=== PATIENT | female | born 1995 | race Asian ===

== ENCOUNTER → 2017-05-18 | Outpatient (CLI) | payer BC ==
--- NOTE | ~2017-05-18 | US24 ---
[facility] A Service of [facility] RADIOLOGY TEXT RESULTS PATIENT: AASHISH PUENTE LOCATION: [facility] : [birth year] UNIT #: [id number] AGE: [address]: ZURI ROLDAN APRN SEX: F ORDER DR: [id number] [facility] [address] [place], [place] [address] [id number] O MR#: [id number] Acc #: [id number] NAME: AASHISH PUENTE : 1995 SEX: F STUDY DATE/TIME: 05/18/2017 8:30 UNIT: [facility] ROOM: STUDY DESCRIPTION: US Breast Unilateral Attending Physician: Zuri Roldan Np Referring Physician: Zuri Roldan Np Ordering Physician: Zuri Roldan Np Primary Care Physician: Zuri Roldan Np MEDICAL IMAGING REPORT This report is preliminary unless electronic signature is present EXAM Left breast ultrasound 05/18/2017 INDICATION Palpable nodule in the left breast for 2-3 months. FINDINGS Sonographic evaluation is performed of the left breast in the area of palpable concern. At the 2:30 position, there is a hypoechoic circumscribed ovoid nodule measuring 1.6 x 1.1 x 1.2 cm. 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 However, biopsy is recommended to confirm. This could be done under ultrasound guidance or via surgical excisional biopsy. Findings and recommendations were discussed with the patient at the time of her examination today. This was also discussed with Liza in the breast advocates office for physician notification purposes. IMPRESSION Nodule at the 2:30 position of the left breast as above. While it may represent a fibroadenoma, ultrasound-guided core biopsy or surgical excisional biopsy recommended. BIRADS: 4 Suspicious abnormality - Biopsy should be considered Dictated by... Farzad Krishnamurthy Jr., M.D. THIS IS AN ELECTRONICALLY VERIFIED REPORT Farzad Krishnamurthy Jr., M.D. at 05/18/2017 3:37 PM RLK/connors [facility] A Service of [facility] RADIOLOGY TEXT RESULTS PATIENT: AASHISH PUENTE [id number] [birth year] UNIT #: [id number] AGE: [address]: ZURI ROLDAN APRN SEX: F ORDER DR: TD: 05/18/2017 13:36 JOB #: [id number] MEDICAL IMAGING REPORT Page 1 of 1 COPY
== END | disposition home or self-care (01) ==
LOC: CWCC 05-17 13:00
DX: N63 Unspecified lump in breast (principal)
CPT/HCPCS: 76641

== ENCOUNTER → 2017-05-27 | Day surgery (SDC) | payer BC ==
--- NOTE | ~2017-05-27 | US200 ---
[facility] A Service [facility] RADIOLOGY TEXT RESULTS PATIENT: AASHISH PUENTE LOCATION: [facility] : [birth year] UNIT #: [id number] AGE: [address]: ZURI ROLDAN APRN SEX: F ORDER DR: [id number] [facility] [address] [place] [address] [place], [place] [address] [id number] O MR#: [id number] Acc #: [id number] NAME: AASHISH PUENTE : 1995 SEX: F STUDY DATE/TIME: 05/27/2017 09:59 UNIT: [facility] ROOM: STUDY DESCRIPTION: US Breast Guided Bx 1st Lesion Attending Physician: Zuri Roldan Np Ordering Physician: Zuri Roldan Np Primary Care Physician: Zuri Roldan Np MEDICAL IMAGING REPORT This report is preliminary unless electronic signature is present REVISED REPORT SEE ADDENDUM EXAM Ultrasound guided left breast biopsy on 05/27/2017 INDICATION Left breast mass seen on recent prior imaging. Biopsy was recommended. PROCEDURE Informed consent was obtained and time-out was performed. The left breast nodule at the 02:30 position was localized with ultrasound. Skin was marked and then prepped and draped using maximum sterile-barrier technique. 1% lidocaine without epinephrine used for local anesthesia. Under direct ultrasound visualization, three 14 gauge cores were obtained through the nodule using an Achieve needle. Specimens were placed in formalin. A marking clip was then left within the mass. There were no immediate complications. Permanent ultrasound images were recorded. The postprocedure mammogram shows the marking clip in the expected location. IMPRESSION Successful ultrasound-guided core biopsy of a left breast nodule. Three 14 gauge cores were obtained and a marking clip was left in place. No immediate complication. Dictated by... Farzad Krishnamurthy Jr., M.D. THIS IS AN ELECTRONICALLY VERIFIED REPORT Farzad Krishnamurthy Jr., M.D. at 05/27/2017 4:48 PM BRITTNEY/nils [facility] A Service [facility] RADIOLOGY TEXT RESULTS PATIENT: AASHISH PUENTE [id number] [birth year] UNIT #: [id number] AGE: [address]: ZURI ROLDAN APRN SEX: F ORDER DR: TD: 05/27/2017 12:25 JOB #: [id number] ADDENDUM Pathology results demonstrate benign fibroadenoma. Imaging results and pathology results are concordant. Patient should undergo routine yearly mammographic screening beginning at age 40, or sooner if clinically indicated. JOB #: [id number] Dictated by... Farzad Krishnamurthy Jr., M.D. THIS IS AN ELECTRONICALLY VERIFIED REPORT Farzad Krishnamurthy Jr., M.D. at 06/18/2017 6:53 AM BRITTNEY/charlie TD: 06/17/2017 23:10 JOB #: [id number] CC: Jesi/duane Please Delete MEDICAL IMAGING REPORT Page 1 of 1 COPY
== END | disposition home or self-care (01) ==
LOC: CWCC 09:20
DX: N60.82 Other benign mammary dysplasias of left breast (principal)
CPT/HCPCS: 88305; G0204